=== PATIENT | male | born 1990 | race American Indian/Alaskan Native ===

== ENCOUNTER 2020-12-20 03:02 | Emergency (ER) | payer SELFPAY ==
[2020-12-20] MEDS ORDERED: SODIUM CHLORIDE 0.9% 1000 ML 1,000 ML IV ONE (03:41)
[2020-12-20] MEDS ORDERED: SODIUM CHLORIDE 0.9% 1000 ML 1,000 ML ONE (03:41)
--- NOTE | 2020-12-20 03:57 | Emergency Department Report ---
HPI - General Chief Complaint: Psych Time Seen by Provider: 12/20/20 03:41 - [facility] HPI: Room 12 D The patient is a 30-year-old male present with a chief complaint of homicidal ideation. Patient has history of schizophrenia and bipolar disorder reportedly threatened his mother and sister that he was going to slit her throat. The patient states he became emotional had a panic attack and was afraid of dying sister got mad at him. Patient acknowledges (his sister states he did not mean it. The patient states he took 1 clonazepam and 2 Rexulti this evening. Patient denies any other coingestions. Patient denies suicidal ideation. Patient admits to auditory hallucinations stating sometimes he hears gone. Patient missed a visual hallucinations stating sometimes he sees "flashes." ED Past Medical Hx - Past Medical History Hx Psychiatric Treatment: Yes (Schizophrenia, bipolar disorder, depression) - Surgical History Past Surgical History?: No - Family History Family history: no significant - Social History Smoking Status: Never Smoker Substance Use Type: None (Denies illicit drug use) ED Review of Systems ROS: Stated complaint: MH Other details as noted in HPI Constitutional: no symptoms reported Eyes: denies: eye pain ENT: denies: throat pain Respiratory: no symptoms reported Cardiovascular: denies: chest pain Endocrine: no symptoms reported Gastrointestinal: denies: abdominal pain Genitourinary: denies: dysuria Musculoskeletal: denies: back pain Neurological: denies: headache Psychiatric: auditory hallucinations, visual hallucinations, homicidal thoughts. denies: suicidal thoughts Physical Exam - Physical Exam Vital Signs: Vital Signs 12/20/20 03:20 Temperature 98.2 F Pulse Rate 151 H Respiratory 18 Rate Blood Pressure 141/80 [Left] O2 Sat by Pulse 97 Oximetry Physical Exam: GENERAL: The patient is well-developed well-nourished male l sitting in chair not appearing to be in acute distress. [] HEENT: Normocephalic. Atraumatic. Extraocular motions are intact. Patient has moist mucous membranes. NECK: Supple. Trachea midline CHEST/LUNGS: Clear to auscultation. There is no respiratory distress noted. HEART/CARDIOVASCULAR: Regular. There is tachycardia. There is no gallop rub or murmur. ABDOMEN: Abdomen is soft, nontender. Patient has normal bowel sounds. There is no abdominal distention. SKIN: There is no rash. There is no edema. There is no diaphoresis. NEURO: The patient is awake, alert, and oriented. The patient is cooperative. The patient has no focal neurologic deficits. The patient has normal speech MUSCULOSKELETAL: There is no evidence of acute injury. ED Course Vital Signs 12/20/20 03:20 Temperature 98.2 F Pulse Rate 151 H Respiratory 18 Rate Blood Pressure 141/80 [Left] O2 Sat by Pulse 97 Oximetry ED Medical Decision Making - EKG Data -: EKG Interpreted by In EKG shows normal: sinus rhythm Rate: tachycardia (122 bpm) - EKG Data When compared to previous EKG there are: previous EKG unavailable Interpretation: other (No ischemic changes seen) - Differential Diagnosis Schizophrenia, homicidal ideation Critical care attestation.: If time is entered above; I have spent that time in minutes in the direct care of this critically ill patient, excluding procedure time. ED Disposition Clinical Impression: Schizophrenia, Homicidal ideation Condition: Stable
[2020-12-20 04:00] LABS: Basophils % (Auto) 0.5 % (0.0-1.8); Eosinophils # (Auto) 0.1 K/mm3 (0.0-0.4); Eosinophils % (Auto) 1.6 % (0.0-4.3); Hemoglobin 13.8 gm/dl (11.8-15.2); Lymphocytes # (Auto) 1.3 K/mm3 (1.2-5.4); Lymphocytes % (Auto) 31.1 % (13.4-35.0); Mean Corpuscular HGB Conc 35 % (32-34); Mean Corpuscular Volume 95 fl (84-94); Monocytes # (Auto) 0.3 K/mm3 (0.0-0.8); Monocytes % (Auto) 7.9 % (0.0-7.3); Platelet Count 208 K/mm3 (140-440); Red Blood Count 4.21 M/mm3 (3.65-5.03)
[2020-12-20 04:17] LABS: BUN/Creatinine Ratio 10; Blood Urea Nitrogen 11 mg/dL (9-20); Calcium 9.3 mg/dL (8.4-10.2); Hemolysis Index 13
[2020-12-20 04:31] LABS: Free T4 (Free Thyroxine) 1.95 ng/dL (0.76-1.46)
[2020-12-20 05:45] LABS: Amphetamine Screen,Urine Negative; Benzodiazepines Screen,Urine Negative; Cannabinoid Screen,Urine Negative; Cocaine Screen,Urine Negative; Methadone Screen,Urine Negative; Opiate Screen,Urine Negative
[2020-12-20 05:54] LABS: Bacteria,Urine 1+ /HPF (Negative); Bilirubin,Urine NEG (Negative); Blood,Urine NEG (Negative); Color,Urine Yellow (Yellow); Mucus,Urine FEW /HPF; Protein,Urine <15 mg/dL mg/dL (Negative); RBC,Urine < 1.0 /HPF (0.0-6.0)
--- NOTE | 2020-12-20 10:25 | Consultation ---
History of Present Illness - Reason for Consult Consult date: 12/20/20 Reason for consult: psychosis - History of Present Psychiatric Illness Per Nurse Note: The patient is a 30-year-old male present with a chief complaint of homicidal ideation. Patient has history of schizophrenia and bipolar disorder reportedly threatened his mother and sister that he was going to slit her throat. The patient states he became emotional had a panic attack and was afraid of dying sister got mad at him. Patient acknowledges (his sister states he did not mean it. The patient states he took 1 clonazepam and 2 Rexulti this evening. Patient denies any other coingestions. Patient denies suicidal ideation. Patient admits to auditory hallucinations stating sometimes he hears gone. Patient missed a visual hallucinations stating sometimes he sees "flashes." During my interview with 30y/o Chago Zelaya, the patient is acutely psychotic. He's difficult to follow. He's having flight of ideas and his speech is nonsensical. When asked why was he brought to the hospital, the patient replies "I'm a virgin with mood and emotions that I have for my sister." He then says "I wanna learn about women." The patient says "I can't be white, but your complexion is good." The patient says "I hear God telling me to be careful and to be smart." He says "I said some things that I shouldn't have said." When asking the patient what was said, he states "I said I would slit my sister and my mother's throat." He says "but God is watching me and talks to me." He denies SI/HI at present. PAST PSYCHIATRIC HISTORY: Diagnoses: Schizophrenia Suicide attempts or Self-harm behavior: Denies Prior psychiatric hospitalizations: Yes Substance Abuse history: Denies Previous psychiatric medications tried: Denies Outpatient treatment: Denies PAST MEDICAL HISTORY: Rheumatoid Family Psychiatric History: None reported or documented SOCIAL HISTORY Marital Status: single Living Arrangements: with family Employment Status: Disabled Access to guns/weapons: Denies Education: high school History of Abuse: Denies Legal History: Denies REVIEW OF SYSTEMS Constitutional: Negative for weight loss ENT: Negative for stridor Respiratory: Negative for cough or hemoptysis All other systems reviewed and are negative MENTAL STATUS EXAMINATION General Appearance and Behavior: Age appropriate, good hygiene, not wearing appr opriate clothes, good eye contact, cooperative polite with questioning. Cooperation: Participating/engaged Psychomotor Behavior: Psychomotor normal Mood: okay Affect and affective range: Euthymic Thought Process: illogical, flight of ideas Speech: nonsensical, normal tone and pace Thought Content Suicidal Ideation: Denies Homicidal Ideation: Denies Hallucinations: Yes Delusions: Yes Impulse Control: impaired Insight and Judgment: Impaired insight and judgment Memory: Limited Attention: Divided attention impaired Orientation: A/o x 3 Assessment and Plan (1) Schizophrenia Current Visit: Yes Status: Acute Treatment Plan Start Risperidone 0.5mg po BID Start Trazodone 50mg po qhs Sitter: Defer to primary Medical: Per primary Disposition: Recommend acute psychiatric inpatient at this time. Will follow. Thank you for this consult Case discussed with Dr. Watkins Medications and Allergies Allergies Allergy/AdvReac Type Severity Reaction Status Date / Time asenapine [From Saphris] Allergy Unknown Verified 12/20/20 04:22 Mental Status Exam - Vital signs Last Vital Signs Temp 98.2 F 12/20/20 03:20 Pulse 115 H 12/20/20 05:03 Resp 18 12/20/20 05:03 BP 128/72 12/20/20 05:03 Pulse Ox 100 12/20/20 05:03 Results Result Diagrams: 12/20/20 03:45 12/20/20 03:45 Abnormal lab results 12/20/20 12/20/20 12/20/20 Range/Units 03:45 03:45 03:45 WBC 4.3 L (4.5-11.0) K/mm3 MCV 95 H (84-94) fl MCH 33 H (28-32) pg MCHC 35 H (32-34) % RDW 13.0 L (13.2-15.2) % Sibley % (Auto) 7.9 H (0.0-7.3) % Glucose 141 H (75-100) mg/dL Free T4 1.95 H (0.76-1.46) ng/dL Salicylates (2.8-20.0) mg/dL Acetaminophen (10.0-30.0) ug/mL 12/20/20 12/20/20 Range/Units 03:45 03:45 WBC (4.5-11.0) K/mm3 MCV (84-94) fl MCH (28-32) pg MCHC (32-34) % RDW (13.2-15.2) % Sibley % (Auto) (0.0-7.3) % Glucose (75-100) mg/dL Free T4 (0.76-1.46) ng/dL Salicylates < 0.3 L (2.8-20.0) mg/dL Acetaminophen 5.0 L (10.0-30.0) ug/mL All other labs normal.
[2020-12-20] MEDS: risperiDONE 0.25 MG TAB PO SCH ×2 (11:39→22:55)
[2020-12-20] MEDS ORDERED: traZODone 50 MG TAB PO SCH (22:00)
[2020-12-21] MEDS ORDERED: ALUM-MAG HYDROXIDE-SIMETHICONE 200-200-20MG/5ML ORAL LIQD 30 ML PO PRN (07:06)
[2020-12-21] MEDS ORDERED: ACETAMINOPHEN 325 MG TAB PO PRN (07:06)
[2020-12-21] MEDS ORDERED: ZIPRASIDONE MESYLATE 20 MG VIAL IM PRN (07:06)
[2020-12-21] MEDS ORDERED: MAGNESIUM HYDROXIDE (MOM) ORAL LIQD UDC PO PRN (07:06)
--- NOTE | 2020-12-21 09:11 | Progress Note ---
Subjective - Reason for Consult Consult date: 12/21/20 Reason for consult: psychosis - Chief Complaint Chief complaint: The patient was seen today, he is walking around the room in slow motion. His affect is flat. His psychosis presents him from engaging in the interview process. He has poor insight. He says he's hearing things in the wall. He then starts staring at the wall. When asking the patient was he SI/HI, he only continued to stare at the wall. REVIEW OF SYSTEMS Constitutional: Negative for weight loss ENT: Negative for stridor Respiratory: Negative for cough or hemoptysis All other systems reviewed and are negative MENTAL STATUS EXAMINATION General Appearance and Behavior: Age appropriate, good hygiene, not wearing appropriate clothes,fair eye contact, cooperative. Cooperation: unengaged Psychomotor Behavior: slow movement Mood: N/A Affect and affective range: Flat Thought Process: illogical, responding to internal stimuli Speech: nonsensical, normal tone and pace Thought Content Suicidal Ideation: N/A Homicidal Ideation: N/A Hallucinations: Yes Delusions: Yes Impulse Control: impaired Insight and Judgment: Impaired insight and judgment Memory: Impaired Attention: Divided attention impaired Orientation: A/o x 3 Assessment and Plan (1) Schizophrenia Current Visit: Yes Status: Acute Treatment Plan Increased Risperidone 1mg po BID Start Depakote DR 125mg po BID Continue Trazodone 50mg po qhs Sitter: Defer to primary Medical: Per primary Disposition: Recommend acute psychiatric inpatient at this time. Will follow. Thank you for this consult Case discussed with Dr. Watkins Mental Status Exam - Vital signs Last Vital Signs Temp 97.8 F 12/20/20 10:26 Pulse 100 H 12/20/20 10:26 Resp 18 12/20/20 19:00 BP 121/83 12/20/20 10:26 Pulse Ox 100 12/20/20 19:00
[2020-12-21] MEDS ORDERED: DIVALPROEX DR 125 MG TAB PO SCH (10:00)
[2020-12-21] MEDS ORDERED: risperiDONE 1 MG TAB PO SCH (10:00)
[2020-12-21 11:32] VITALS: BP 149/92
--- NOTE | 2020-12-24 15:00 | Electrocardiograph Report ---
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
== END 2020-12-21 16:17 ==
LOC: ED 03:02
DX: F25.0 Schizoaffective disorder, bipolar type (principal); Z20.822 Contact with and (suspected) exposure to COVID-19
CPT/HCPCS: 36415; 80048; 80307; 81001; 84439; 84443; 85025; 93005; 96360; 99285; J7030; U0003; 80320; G0480

== ENCOUNTER 2020-12-22 07:54 | Emergency (ER) | payer SELFPAY ==
[2020-12-22] MEDS ORDERED: SODIUM CHLORIDE 0.9% 1000 ML 1,000 ML IV ONE ×3 (10:21→15:06)
--- NOTE | 2020-12-22 10:26 | Emergency Department Report ---
HPI - General Chief Complaint: Arrhythmia/Palpitations Time Seen by Provider: 12/22/20 10:02 - HPI HPI: This is a 30-year-old -German male who presents to the emergency department from [facility] for tachycardia after he was found to have a heart rate of 110 to 117 bpm at the psychiatric facility. The patient went to [facility] yesterday after a medical clearance here. He was initially made a 1013 and sent to [facility] secondary to some aggressive behavior and homicidal ideations towards his family. He has a history of schizophrenia, bipolar disorder and depression. When the patient was here starting on 12/20, he presented with a heart rate of about 150 bpm and still had some mild tachycardia upon acceptance and transfer. I reviewed the previous medical clearance labs and the only lab abnormality was a slightly elevated free T4 which could represent some very mild hyperthyroidism. The patient is currently able to answer orientation questions but does still exhibit some tangential thoughts and psychosis. ED Past Medical Hx - Past Medical History Previous Medical History?: Yes Hx Psychiatric Treatment: Yes (Schizophrenia, bipolar disorder, depression) - Social History Smoking Status: Unknown if ever smoked Substance Use Type: Other - Medications Home Medications: Home Medications Medication Instructions Recorded Confirmed Last Taken Type Methimazole [Tapazole] 55 mg PO QDAY #30 tab 12/15/20 Unknown Rx Metoprolol Tartrate [Lopressor] 25 mg PO Q12H #60 tablet 12/22/20 Unknown Rx ED Review of Systems ROS: Stated complaint: ELEVATED HR Other details as noted in HPI Comment: All other systems reviewed and negative Constitutional: denies: chills, diaphoresis Eyes: denies: vision change Respiratory: denies: shortness of breath Cardiovascular: denies: chest pain, palpitations Gastrointestinal: denies: abdominal pain, vomiting Neurological: denies: headache, weakness Physical Exam - Physical Exam Vital Signs: Vital Signs 12/22/20 08:08 Temperature 98.5 F Pulse Rate 120 H Respiratory 16 Rate Blood Pressure 143/90 O2 Sat by Pulse 98 Oximetry Physical Exam: GENERAL: The patient is well-developed well-nourished. HENT: Normocephalic. Atraumatic. Patient has moist mucous membranes. EYES: Extraocular motions are intact. NECK: Supple. Trachea is midline. CHEST/LUNGS: Clear to auscultation. There is no respiratory distress noted. HEART/CARDIOVASCULAR: Regular. There is moderate tachycardia. There is no murmur. ABDOMEN: Abdomen is soft, nontender. Patient has normal bowel sounds. There is no abdominal distention. SKIN: Skin is warm and dry. NEURO: The patient is awake, alert. Patient is able to answer orientation questions but otherwise appears confused. MUSCULOSKELETAL: There is no tenderness or deformity. There is no limitation range of motion. PSYCH: There is rambling tangential thoughts. ED Course Vital Signs 12/22/20 08:08 Temperature 98.5 F Pulse Rate 120 H Respiratory 16 Rate Blood Pressure 143/90 O2 Sat by Pulse 98 Oximetry ED Medical Decision Making - Lab Data Result diagrams: 12/22/20 10:30 12/22/20 10:30 Lab Results 12/22/20 12/22/20 12/22/20 Range/Units 10:30 10:30 10:30 WBC 5.8 (4.5-11.0) K/mm3 RBC 4.59 (3.65-5.03) M/mm3 Hgb 15.0 (11.8-15.2) gm/dl Hct 44.3 (35.5-45.6) % MCV 97 H (84-94) fl MCH 33 H (28-32) pg MCHC 34 (32-34) % RDW 12.9 L (13.2-15.2) % Plt Count 237 (140-440) K/mm3 Lymph % (Auto) 26.9 (13.4-35.0) % Blaine % (Auto) 6.6 (0.0-7.3) % Eos % (Auto) 2.4 (0.0-4.3) % Baso % (Auto) 0.4 (0.0-1.8) % Lymph # (Auto) 1.5 (1.2-5.4) K/mm3 Blaine # (Auto) 0.4 (0.0-0.8) K/mm3 Eos # (Auto) 0.1 (0.0-0.4) K/mm3 Baso # (Auto) 0.0 (0.0-0.1) K/mm3 Seg Neutrophils % 63.7 (40.0-70.0) % Seg Neutrophils # 3.7 (1.8-7.7) K/mm3 D-Dimer (0-234) ng/mlDDU Sodium 140 (137-145) mmol/L Potassium 3.6 (3.6-5.0) mmol/L Chloride 102.1 (98-107) mmol/L Carbon Dioxide 26 (22-30) mmol/L Anion Gap 16 mmol/L BUN 11 (9-20) mg/dL Creatinine 1.2 (0.8-1.3) mg/dL Estimated GFR > 60 ml/min BUN/Creatinine Ratio 9 % Glucose 104 H (75-100) mg/dL Lactic Acid (0.7-2.0) mmol/L Calcium 9.1 (8.4-10.2) mg/dL Total Bilirubin 0.90 (0.1-1.2) mg/dL AST 66 H (5-40) units/L ALT 38 (7-56) units/L Alkaline Phosphatase 58 (35-129) units/L Total Creatine Kinase (55-170) units/L Troponin T (0.00-0.029) ng/mL Total Protein 7.8 (6.3-8.2) g/dL Albumin 4.7 (3.9-5) g/dL Albumin/Globulin Ratio 1.5 % TSH 0.653 (0.270-4.200) mlU/mL Free T4 1.51 H (0.76-1.46) ng/dL 12/22/20 12/22/20 12/22/20 Range/Units 13:44 13:44 15:41 WBC (4.5-11.0) K/mm3 RBC (3.65-5.03) M/mm3 Hgb (11.8-15.2) gm/dl Hct (35.5-45.6) % MCV (84-94) fl MCH (28-32) pg MCHC (32-34) % RDW (13.2-15.2) % Plt Count (140-440) K/mm3 Lymph % (Auto) (13.4-35.0) % Blaine % (Auto) (0.0-7.3) % Eos % (Auto) (0.0-4.3) % Baso % (Auto) (0.0-1.8) % Lymph # (Auto) (1.2-5.4) K/mm3 Blaine # (Auto) (0.0-0.8) K/mm3 Eos # (Auto) (0.0-0.4) K/mm3 Baso # (Auto) (0.0-0.1) K/mm3 Seg Neutrophils % (40.0-70.0) % Seg Neutrophils # (1.8-7.7) K/mm3 D-Dimer 147.00 (0-234) ng/mlDDU Sodium (137-145) mmol/L Potassium (3.6-5.0) mmol/L Chloride (98-107) mmol/L Carbon Dioxide (22-30) mmol/L Anion Gap mmol/L BUN (9-20) mg/dL Creatinine (0.8-1.3) mg/dL Estimated GFR ml/min BUN/Creatinine Ratio % Glucose (75-100) mg/dL Lactic Acid 1.10 (0.7-2.0) mmol/L Calcium (8.4-10.2) mg/dL Total Bilirubin (0.1-1.2) mg/dL AST (5-40) units/L ALT (7-56) units/L Alkaline Phosphatase (35-129) units/L Total Creatine Kinase (55-170) units/L Troponin T < 0.010 (0.00-0.029) ng/mL Total Protein (6.3-8.2) g/dL Albumin (3.9-5) g/dL Albumin/Globulin Ratio % TSH (0.270-4.200) mlU/mL Free T4 (0.76-1.46) ng/dL 12/22/20 Range/Units 15:41 WBC (4.5-11.0) K/mm3 RBC (3.65-5.03) M/mm3 Hgb (11.8-15.2) gm/dl Hct (35.5-45.6) % MCV (84-94) fl MCH (28-32) pg MCHC (32-34) % RDW (13.2-15.2) % Plt Count (140-440) K/mm3 Lymph % (Auto) (13.4-35.0) % Blaine % (Auto) (0.0-7.3) % Eos % (Auto) (0.0-4.3) % Baso % (Auto) (0.0-1.8) % Lymph # (Auto) (1.2-5.4) K/mm3 Blaine # (Auto) (0.0-0.8) K/mm3 Eos # (Auto) (0.0-0.4) K/mm3 Baso # (Auto) (0.0-0.1) K/mm3 Seg Neutrophils % (40.0-70.0) % Seg Neutrophils # (1.8-7.7) K/mm3 D-Dimer (0-234) ng/mlDDU Sodium (137-145) mmol/L Potassium (3.6-5.0) mmol/L Chloride (98-107) mmol/L Carbon Dioxide (22-30) mmol/L Anion Gap mmol/L BUN (9-20) mg/dL Creatinine (0.8-1.3) mg/dL Estimated GFR ml/min BUN/Creatinine Ratio % Glucose (75-100) mg/dL Lactic Acid (0.7-2.0) mmol/L Calcium (8.4-10.2) mg/dL Total Bilirubin (0.1-1.2) mg/dL AST (5-40) units/L ALT (7-56) units/L Alkaline Phosphatase (35-129) units/L Total Creatine Kinase 2778 H (55-170) units/L Troponin T (0.00-0.029) ng/mL Total Protein (6.3-8.2) g/dL Albumin (3.9-5) g/dL Albumin/Globulin Ratio % TSH (0.270-4.200) mlU/mL Free T4 (0.76-1.46) ng/dL - Medical Decision Making This patient was sent into the emergency department from his psychiatric facility due to some persistent tachycardia this morning. Initially the EKG showed sinus tachycardia at 111 bpm, but there was no signs of any ST elevation myocardial infarction or any arrhythmia. Patient still exhibits some signs of psychosis for which she is currently at [facility]. Therefore he is not always cooperative or compliant with the treatment plan. He has pulled out multiple IVs. Patient was given 2 L of IV fluid resuscitation, a dose of Ativan and later a dose of Geodon. The patient's labs shows some signs of rhabdomyolysis with a CK of about 2500, mild hyperthyroidism with an elevated free T4. The rest of the labs have been unremarkable. Despite the different treatment modalities the patient continues to have some tachycardia that has gotten as high as 130 bpm. It is my plan for the patient to be admitted to the hospital for further evaluation of this tachycardia and the patient will be presented to the admitting hospitalist, Dr. Guido. Critical Care Time: No Critical care attestation.: If time is entered above; I have spent that time in minutes in the direct care of this critically ill patient, excluding procedure time. ED Disposition Clinical Impression: Schizophrenia, Tachycardia, Hyperthyroidism, Rhabdomyolysis Disposition: OP ADMIT IP TO THIS HOSP Is pt being admited?: Yes Condition: Fair Prescriptions: Metoprolol Tartrate [Lopressor] 25 mg PO Q12H #60 tablet Methimazole [Tapazole] 55 mg PO QDAY #30 tab Time of Disposition: 17:14
[2020-12-22 11:05] LABS: Basophils % (Auto) 0.4 % (0.0-1.8); Eosinophils # (Auto) 0.1 K/mm3 (0.0-0.4); Eosinophils % (Auto) 2.4 % (0.0-4.3); Hematocrit 44.3 % (35.5-45.6); Lymphocytes # (Auto) 1.5 K/mm3 (1.2-5.4); Lymphocytes % (Auto) 26.9 % (13.4-35.0); Mean Corpuscular HGB Conc 34 % (32-34); Mean Corpuscular Volume 97 fl (84-94); Monocytes # (Auto) 0.4 K/mm3 (0.0-0.8); Monocytes % (Auto) 6.6 % (0.0-7.3); Platelet Count 237 K/mm3 (140-440); Red Blood Count 4.59 M/mm3 (3.65-5.03); Red Cell Distribution Width 12.9 % (13.2-15.2)
[2020-12-22 11:20] LABS: Alanine Aminotransferase 38 units/L (7-56); Albumin 4.7 g/dL (3.9-5); BUN/Creatinine Ratio 9; Blood Urea Nitrogen 11 mg/dL (9-20); Calcium 9.1 mg/dL (8.4-10.2); Hemolysis Index 7
[2020-12-22 11:33] LABS: Free T4 (Free Thyroxine) 1.51 ng/dL (0.76-1.46)
[2020-12-22] MEDS ORDERED: LORazepam 2 MG/ML VIAL IV ONE (12:14)
[2020-12-22 13:21] VITALS: BP 119/84
[2020-12-22] MEDS ORDERED: ZIPRASIDONE MESYLATE 20 MG VIAL IM ONE (14:07)
[2020-12-22] MEDS ORDERED: METOPROLOL TARTRATE 5 MG/5 ML INJ IV ONE (16:32)
--- NOTE | 2020-12-22 17:07 | Event Note ---
Date: 12/22/20 Patient reexamined Sitting in the room comfortably Blood pressure 119/84 Heart rate 107 Electrolytes are normal CK slightly elevated AC slightly elevated T4 elevated Discharge diagnosis Mild hypothyroidism Tachycardia Patient to be discharged on And methimazole 5 mg once a day Check LFTs in 1 month Plenty of water intake for the mild rhabdo Lopressor 25 mg twice a day
== END 2020-12-22 22:10 | disposition admitted as inpatient to this hospital (09) ==
LOC: ED 07:54
DX: F25.0 Schizoaffective disorder, bipolar type (principal); R00.0 Tachycardia, unspecified; E87.6 Hypokalemia; M62.82 Rhabdomyolysis; Z79.899 Other long term (current) drug therapy
CPT/HCPCS: 36415; 80053; 82140; 82550; 84439; 84443; 84484; 85025; 85379; 93005; 96361; 96372; 96374; 99283; J2060; J3486; J7030